=== PATIENT | female | born 1980 | race Caucasian/White ===

== ENCOUNTER 2016-11-07 20:09 | Inpatient (IN) | payer OTHER ==
[~2016-11-07] VITALS: Ht 167.6 cm; Wt 110.2 kg
[2016-11-07] MEDS ORDERED: LEXAPRO5 MG PO (23:17)
[2016-11-07] MEDS ORDERED: LANTUS SOL100 UNIT/1 SUBCUT (23:19)
[2016-11-07] MEDS ORDERED: GLUCOPHAGE1000 MG PO (23:19)
[2016-11-10] MEDS ORDERED: MOTRIN800 MG PO (09:16)
[2016-11-10] MEDS ORDERED: DERMOPLAST PAIN78 GM TOP (09:17)
[2016-11-10] MEDS ORDERED: COLACE100 MG PO (09:17)
[2016-11-10] MEDS ORDERED: LAN-O-SOOTHE7 GM TOP (09:17)
== END 2016-11-10 13:05 | disposition short-term general hospital (02) | DRG 775 ==
LOC: LDROP 20:09 → IP 20:09 → EDSTATUS 20:23 → LDRIP 21:15
PROVIDERS: ADMIT Family Medicine
PROC: 10E0XZZ Delivery of Products of Conception, External Approach (ICD-10-PCS; principal; 2016-11-08)
DX: O24.424 Gestational diabetes mellitus in childbirth, insulin controlled (principal); Z3A.36 36 weeks gestation of pregnancy; Z37.0 Single live birth; O99.334 Smoking (tobacco) complicating childbirth; F17.200 Nicotine dependence, unspecified, uncomplicated
CPT/HCPCS: A9150; J1815; J2300; J2310; J2370; J2590; J2765; J2795; J3010